=== PATIENT | female | born 1950 ===

== ENCOUNTER 2017-02-05 20:53 | Emergency (ER) | payer MEDICARE, MEDICAID ==
[~2017-02-05] VITALS: Ht 147.3 cm; Wt 77.3 kg
[~2017-02-05 20:53] MED LIST: BACTRIM DS 8001 TAB PO; CEPHALEXIN500 M1 PO; LIBRAX 5 MG-2.51 CA1 PO; LORTAB 5/500 501 TAB PO; NO HOME MEDICATIONS; SEPTRA DS 8001 TAB PO; bp med
[2017-02-05 20:56] VITALS: TEMP 99.4
[2017-02-06 00:19] VITALS: BP 141/81; PULSE 90
== END 2017-02-06 00:20 | disposition home or self-care (01) ==
LOC: COL.ER 20:53
DX: S09.90XA Unspecified injury of head, initial encounter (principal); S00.83XA Contusion of other part of head, initial encounter; W19.XXXA Unspecified fall, initial encounter; I10 Essential (primary) hypertension

== ENCOUNTER → 2018-11-22 | Outpatient (CLI) | payer MEDICARE, MEDICAID ==
[~2018-11-22] MED LIST changes: +HCTZ12.5TAB PO
[2018-11-22 16:48] LABS: BASO # 0.1 (0.0-0.2); BASO % 0.5 % (0.0-2.0); EOS # 0.5 (0.0-0.7); EOS % 3.5 % (0-4.0); GRAN # 8.7 (1.4-6.5); GRAN % 68.6 % (42.2-75.2); HEMATOCRIT 42.5 % (37.0-47.0); LYMPH # 2.8 (1.2-3.4); LYMPH % 22.4 % (20.0-51.0); MEAN CELL VOLUME 83 fl (80.0-100.0); MEAN CORPUSCULAR HEMOGLOBIN 27 pg (27.0-31.0); MEAN CORPUSCULAR HGB CONC 33 g/dl (33.0-37.0); MONO # 0.6 (0.1-0.6); MONO % 4.5 % (1.7-9.3); PLATELET COUNT 342 K/mm3 (130-400); RED BLOOD COUNT 5.15 M/mm3 (4.10-5.30); REDCELL DISTRIBUTION WIDTH-CV 13.2 % (11.5-14.5)
[2018-11-22 16:55] LABS: ALBUMIN 4.1 gm/dL (3.5-5.0); BILIRUBIN,TOTAL 0.6 mg/dL (0.0-1.0); CALCIUM 9.8 mg/dL (8.4-10.2); CHOLESTEROL RISK RATIO 5.2; CREATININE, serum 0.69 mg/dL (0.52-1.25); POTASSIUM 3.9 mmol/L (3.4-5.0); TOTAL PROTEIN 7.9 gm/dL (6.4-8.2)
[2018-11-22 17:25] LABS: TSH w REFLEX 0.783 uIU/mL (0.465-4.680)
== END ==
LOC: ZCOL.LAB 15:58
PROVIDERS: Family Medicine
DX: I10 Essential (primary) hypertension (principal); R41.3 Other amnesia; R32 Unspecified urinary incontinence

== ENCOUNTER → 2020-11-05 | Outpatient (CLI) | payer MEDICARE, MEDICAID | LOC: COL.RAD 09:37 | DX: Z01.818 Encounter for other preprocedural examination (principal); K43.9 Ventral hernia without obstruction or gangrene; Z90.710 Acquired absence of both cervix and uterus | CPT/HCPCS: Q9967 ==

== ENCOUNTER 2021-09-24 12:58 | Inpatient (IN) | payer MEDICARE, MEDICAID ==
[~2021-09-24] VITALS: Ht 149.9 cm; Wt 68.6 kg
[2021-09-24 13:45] LABS: HEMATOCRIT 47.8 % (37.0-47.0); HEMOGLOBIN 15.7 g/dl (12.5-16.0); MEAN CELL VOLUME 81 fl (80.0-100.0); MEAN CORPUSCULAR HEMOGLOBIN 27 pg (27-31); MEAN CORPUSCULAR HGB CONC 33 g/dl (33.0-37.0); MEAN PLATELET VOLUME 9.9 fl (7.4-10.4); PLATELET COUNT 540 K/mm3 (130-400); RED BLOOD COUNT 5.87 M/mm3 (4.10-5.30); REDCELL DISTRIBUTION WIDTH-CV 14.9 % (11.5-14.5)
[2021-09-24 14:03] LABS: ALBUMIN 4.8 gm/dL (3.4-4.8); BILIRUBIN,TOTAL 0.4 mg/dL (0.2-1.2); CALCIUM 9.4 mg/dL (8.4-10.2); CREATININE, serum 7.48 mg/dL (0.57-1.11); TOTAL PROTEIN 9.9 gm/dL (6.2-8.1)
[2021-09-24 14:08] LABS: TROPONIN-I 0.027 ng/mL (0.00-0.033)
[2021-09-24 14:49] LABS: COLLECTION METHOD CLEAN CATCH
[2021-09-24 14:51] LABS: BAND 5 % (0-10); LYMPHOCYTE 10 % (20.0-51.0); NEUTROPHILS 83 % (42.0-75.2); PLATELET ESTIMATE INCREASED (NORMAL)
[2021-09-24 15:15] LABS: MUCOUS Present (NOT PRESENT); PH 5 (5-8); SQUAMOUS EPITHELIAL 0-2 /hpf (0-10); URINE APPEARANCE Cloudy (CLEAR/HAZY); URINE BACTERIA Occasional /hpf (NONE SEEN); URINE BILIRUBIN Negative (NEGATIVE); URINE BLOOD Negative (NEGATIVE); URINE COLOR Amber (YELLOW); URINE GLUCOSE Negative (NEGATIVE); URINE KETONE Trace (NEGATIVE); URINE LEUKOCYTE ESTERASE 3+ (NEGATIVE); URINE NITRATE Negative (NEGATIVE); URINE PROTEIN(semi-quant) 2+ (NEGATIVE); URINE UROBILINOGEN Negative (NEGATIVE)
[2021-09-24] MEDS ORDERED: GLUCOTROL XL5 MG/TAB PO (18:11)
[2021-09-24] MEDS ORDERED: HCTZ 25MG TAB25 MG PO (18:13)
[2021-09-24] MEDS ORDERED: LIPITOR 40MG TA40 MG PO (18:13)
[2021-09-24] MEDS ORDERED: ZESTRIL40 MG PO (18:14)
--- NOTE | 2021-09-24 19:13 | NUR ---
PT ARRIVED TO FLOOR AROUND 1745. SETTLED INTO ROOM, ASSESSMENT COMPLETED, MED-RED UPDATED. LUNG SOUNDS DIMINISHED, IV FLUIDS STARTED PER ORDERS AND MEDS ADMINISTERED. [facility] WAS CONSULTED FOR ID. CALL LIGHT IN REACH, BED LOWERED AND BED ALARMS ON.
--- NOTE | 2021-09-24 20:20 | NUR ---
Patient is resting in bed, alert and oriented x 4, tachycardic. States she does not feel comfortable standing up, she feels weak. Pt had an incontinent episode, hygiene provided, linens and gown changed. Right now at RA and receiving fluids. Assessment completed, medications provided. No further needs at this time. Call light within reach.
[2021-09-25 00:13] VITALS: BP 120/58; PULSE 107; TEMP 98.2
[2021-09-25 04:49] VITALS: BP 113/45; PULSE 103; TEMP 97.9
--- NOTE | 2021-09-25 06:16 | NUR ---
Patient has not been able to rest along the night. She has had 3 incontinent episodes of diarrhea. Right now getting NS 75mL/hr. Patient still at RA. Report will be given to day RN.
[2021-09-25 06:59] LABS: BASO # 0.1 K/mm3 (0.0-0.2); BASO % 0.3 % (0.0-2.0); GRAN # 18.8 K/mm3 (1.4-6.5); GRAN % 85.4 % (42.2-75.2); LYMPH # 1.8 K/mm3 (1.2-3.4); LYMPH % 8.3 % (20.0-51.0); MEAN CELL VOLUME 79 fl (80.0-100.0); MEAN CORPUSCULAR HGB CONC 34 g/dl (33.0-37.0); MEAN PLATELET VOLUME 10.3 fl (7.4-10.4); MONO # 1.2 K/mm3 (0.1-0.6); MONO % 5.4 % (1.7-9.3); RED BLOOD COUNT 4.94 M/mm3 (4.10-5.30); REDCELL DISTRIBUTION WIDTH-CV 14.8 % (11.5-14.5)
[2021-09-25 07:14] LABS: MEAN CORPUSCULAR HEMOGLOBIN 27 pg (27-31)
[2021-09-25 07:15] LABS: ALBUMIN 3.7 gm/dL (3.4-4.8); CALCIUM 8.9 mg/dL (8.4-10.2); CREATININE, serum 6.96 mg/dL (0.57-1.11); MAGNESIUM 2.4 mg/dL (1.6-2.6); PHOSPHOROUS 8.2 mg/dL (2.3-4.7); POTASSIUM 4.1 mmol/L (3.5-4.5)
[2021-09-25 07:17] LABS: HEMOGLOBIN 13.2 g/dl (12.5-16.0); PLATELET COUNT 440 K/mm3 (130-400)
[2021-09-25 08:59] VITALS: BP 115/57; PULSE 87; TEMP 98.4
--- NOTE | 2021-09-25 10:17 | NUR ---
PT RESTING IN BED. REPOSITIONED PT IN BED TO FACILITATE EATING BREAKFAST. PT SEEN BY RAUL LÓPEZ FOR BEDROS. LUNGS COARSE ALL MANUEL.
--- NOTE | 2021-09-25 11:05 | NUR ---
PT HAD DIARRHEA BED CHANGE AND BED BATH GIVEN.
[2021-09-25 11:34] VITALS: BP 115/47; PULSE 91; TEMP 98.8
--- NOTE | 2021-09-25 13:19 | NUR ---
brick kiln worker was unable to contact patient in her room. Worker contacted patient's daughter's Vicky #[phone] and her sister to complete initial assessment and discuss discharge planning. Patient lives with daughter, Batsheva #[phone] and Batsheva is with patient most of the day. Batsheva currently has COVID and also speaks very little [place]. Vicky wishes to be the contact lens blocker and cutter for this reason. Patient does not have a durable power of tinner helper and worker provided information and offered to assist patient with completion of document if she/family desired. Daughters verbalized support in making the advance directives. Worker confirmed that patient has Medicare and [employer] and her primary care provider is Dr Johnson. Daughters state that patient has been independent with all of her activities of daily living and has been picking up her own prescriptions. Worker provided nurses station number and encouraged Vicky to call and leave a request for patient's nurse to call with updates. Worker advised that case management team will assist patient and family with securing a safe discharge plan.
--- NOTE | 2021-09-25 14:50 | NUR ---
PT HAS HAD SEVERAL INCONTINENT STOOLS AND VOIDS THIS SHIFT.
[2021-09-25 17:11] VITALS: BP 130/58; PULSE 95; TEMP 98.7
[2021-09-25 21:48] VITALS: BP 125/59; PULSE 102; TEMP 97.8
[2021-09-26 01:36] VITALS: BP 141/63; PULSE 98; TEMP 98.7
--- NOTE | 2021-09-26 05:21 | NUR ---
ASSESSMENT COMPLETE FOR THIS SHIFT. PT RESTING IN BED NAPPING WHEN I WALKED IN. PT DENIES PAIN, PALPITATIONS, SOB, OR DIZZINESS. PT HAS SEVERAL INCONTINENT BOWELS TONIGHT, AFTER WHICH SHE WOULD CALL OUT TO LET US KNOW SHE NEEDED TO BE CHANGED. PT ALSO CALLED HER DAUGHTER TO HAVE THE NURSE COME IN TO CHANGE HER, WHEN SHE COULDN'T FIND HER CALL LIGHT BECAUSE SHE HAD ROLLED ON TOP OF IT. PT EXPRESSED NO OTHER NEEDS AT THIS TIME. CALL LIGHT WITHIN REACH.
[2021-09-26 05:54] VITALS: BP 120/56; PULSE 91; TEMP 98.2
[2021-09-26 06:15] LABS: BASO # 0.1 K/mm3 (0.0-0.2); BASO % 0.4 % (0.0-2.0); EOS % 0.1 % (0.0-4.0); GRAN # 16.1 K/mm3 (1.4-6.5); GRAN % 84.2 % (42.2-75.2); HEMOGLOBIN 11.9 g/dl (12.5-16.0); LYMPH # 1.9 K/mm3 (1.2-3.4); LYMPH % 9.7 % (20.0-51.0); MEAN CELL VOLUME 81 fl (80.0-100.0); MEAN CORPUSCULAR HEMOGLOBIN 26 pg (27-31); MEAN CORPUSCULAR HGB CONC 33 g/dl (33.0-37.0); MEAN PLATELET VOLUME 10.5 fl (7.4-10.4); MONO # 0.9 K/mm3 (0.1-0.6); MONO % 4.8 % (1.7-9.3); PLATELET COUNT 342 K/mm3 (130-400); REDCELL DISTRIBUTION WIDTH-CV 15.2 % (11.5-14.5)
[2021-09-26 06:24] LABS: HEMATOCRIT 36.4 % (37.0-47.0)
[2021-09-26 06:31] LABS: ALBUMIN 3.2 gm/dL (3.4-4.8); CALCIUM 8.7 mg/dL (8.4-10.2); CREATININE, serum 6.5 mg/dL (0.57-1.11); MAGNESIUM 2.2 mg/dL (1.6-2.6); PHOSPHOROUS 7.8 mg/dL (2.3-4.7)
--- NOTE | 2021-09-26 08:00 | NUR ---
Shift assessment complete. Pt resting in bed, A&Ox4. Incontinent of loose brown stool. Pt cleaned up and changed. Heart RRR. Lungs CTA. Denies pain or SOA. Remains on RA. Fluids running at 100 ml/hr. Denies needs at this time. Call light in reach.
[2021-09-26 08:07] VITALS: BP 139/50; PULSE 90; TEMP 97.9
[2021-09-26 11:16] VITALS: BP 135/55; PULSE 86; TEMP 98.3
[2021-09-26 17:36] VITALS: BP 136/47; PULSE 87; TEMP 98.1
[2021-09-26 21:51] VITALS: BP 140/58; PULSE 87; TEMP 98.6
[2021-09-27 00:39] VITALS: BP 150/62; PULSE 82; TEMP 98.9
[2021-09-27 05:40] VITALS: BP 149/62; PULSE 83; TEMP 98.7
--- NOTE | 2021-09-27 06:19 | NUR ---
Pt on RA, no SOA reported, IVF infusing @100cc/hr, BGM 81 this am, x1 episode of emesis this shift, PRISCILA Ramos notified, zofran ordered and given, no further emesis. continues to have incontinence of loose stools and urine, notified PRISCILA Smith of this and need for BGMs and insulin orders per Dr Amezquita's note yesterday. GI panel, BGMs and insulin ordered, blood sugar this am 81.
[2021-09-27 07:33] LABS: HEMOGLOBIN 10.7 g/dl (12.5-16.0); MEAN CELL VOLUME 79 fl (80.0-100.0); MEAN CORPUSCULAR HEMOGLOBIN 26 pg (27-31); MEAN CORPUSCULAR HGB CONC 33 g/dl (33.0-37.0); MEAN PLATELET VOLUME 10.3 fl (7.4-10.4); PLATELET COUNT 287 K/mm3 (130-400); RED BLOOD COUNT 4.08 M/mm3 (4.10-5.30); REDCELL DISTRIBUTION WIDTH-CV 15.2 % (11.5-14.5)
[2021-09-27 07:35] LABS: HEMATOCRIT 32.3 % (37.0-47.0)
[2021-09-27 08:02] LABS: ALBUMIN 2.8 gm/dL (3.4-4.8); CALCIUM 8.7 mg/dL (8.4-10.2); CREATININE, serum 5.72 mg/dL (0.57-1.11); MAGNESIUM 1.9 mg/dL (1.6-2.6); PHOSPHOROUS 5.6 mg/dL (2.3-4.7); POTASSIUM 3.9 mmol/L (3.5-4.5)
[2021-09-27 08:10] VITALS: BP 149/59; PULSE 85; TEMP 97.5
[2021-09-27 08:55] LABS: BAND 1 % (0-10); LYMPHOCYTE 13 % (20.0-51.0); NEUTROPHILS 81 % (42.0-75.2); PLATELET ESTIMATE NORMAL (NORMAL)
--- NOTE | 2021-09-27 09:57 | NUR ---
PT RESTING IN BED, MORNING MEDICATIONS GIVEN. SHIFT ASSESSMENT COMPLETED. PT A&O TO QUESTIONS. DENIES ANY NEEDS. CURRENTLY ON ROOM AIR WITH IV FLUIDS INFUSING. WILL CONTINUE TO MONITOR.
[2021-09-27 11:43] VITALS: BP 154/56; PULSE 83; TEMP 98.9
--- NOTE | 2021-09-27 15:18 | NUR ---
Retail Marketing Specialist spoke with hospitalist about PT/OT orders and will continue to follow for any discharge recommendations.
[2021-09-27 16:00] VITALS: BP 172/60; PULSE 77; TEMP 99.2
[2021-09-27 20:09] VITALS: BP 157/57; PULSE 71; TEMP 98
[2021-09-28] VITALS (7 sets, daily range): BP systolic 146–192; BP diastolic 60–76; PULSE 71–87; TEMP 98.5–98.9
[2021-09-28 06:43] LABS: HEMOGLOBIN 10.6 g/dl (12.5-16.0); MEAN CELL VOLUME 80 fl (80.0-100.0); MEAN CORPUSCULAR HEMOGLOBIN 26 pg (27-31); MEAN CORPUSCULAR HGB CONC 33 g/dl (33.0-37.0); MEAN PLATELET VOLUME 10.2 fl (7.4-10.4); PLATELET COUNT 294 K/mm3 (130-400); RED BLOOD COUNT 4.03 M/mm3 (4.10-5.30); REDCELL DISTRIBUTION WIDTH-CV 14.8 % (11.5-14.5)
[2021-09-28 06:52] LABS: HEMATOCRIT 32.4 % (37.0-47.0)
[2021-09-28 07:04] LABS: ALBUMIN 2.9 gm/dL (3.4-4.8); CREATININE, serum 4.04 mg/dL (0.57-1.11); MAGNESIUM 1.8 mg/dL (1.6-2.6); POTASSIUM 3.7 mmol/L (3.5-4.5)
--- NOTE | 2021-09-28 07:05 | NUR ---
ASSESSMENT COMPLETE FOR THIS SHIFT. PT RESTING IN BED. PT DENIED PALPITATIONS, N,V,D, SOB OR DIZZINESS. PT COMPLAINED OF STOMACH PAIN. PT GIVEN NORCO FOR PAIN. PAIN RELIEVED PER PT. PT HAS MASS TO LEFT ABD. PT ALSO COMPLAINED OF ICHY FEET AND DRY MOUTH AND LIPS. I MASSAGED PT'S FEET AND ANKLES WITH LOTION, PLACED MOUTH MOISTURE ON PT'S LIPS AND GAVE PT SOME WATER. PT EXPRESSED NO OTHER NEEDS AT THIS TIME. CALL LIGHT WITHIN REACH
[2021-09-28 07:42] LABS: LYMPHOCYTE 16 % (20.0-51.0); NEUTROPHILS 79 % (42.0-75.2); PLATELET ESTIMATE NORMAL (NORMAL)
--- NOTE | 2021-09-28 10:11 | NUR ---
PT RESTING IN BED. MORNING MEDICATIONS GIVEN. SHIFT ASSESSMENT COMPLETED. PT IV INFILTRATED, NEW SITE STARTED AT R FOREARM, NS INFUSING AT 100ML/HR. DENIES ANY OTHER SORCE OF PAIN OR SOB. CURRENTLY NOT REQUIRING OXYGEN. WILL CONTINUE TO MONITOR.
[2021-09-29 03:40] VITALS: BP 167/73; PULSE 75; TEMP 98.5
[2021-09-29 07:02] LABS: ALBUMIN 2.8 gm/dL (3.4-4.8); CALCIUM 8.7 mg/dL (8.4-10.2); CREATININE, serum 2.17 mg/dL (0.57-1.11); MAGNESIUM 1.4 mg/dL (1.6-2.6); PHOSPHOROUS 2.9 mg/dL (2.3-4.7); POTASSIUM 3.6 mmol/L (3.5-4.5)
[2021-09-29 08:28] VITALS: BP 162/67; PULSE 77; TEMP 98.8
[2021-09-29 09:44] LABS: HEMATOCRIT 33.6 % (37.0-47.0); HEMOGLOBIN 11.3 g/dl (12.5-16.0); MEAN CELL VOLUME 79 fl (80.0-100.0); MEAN CORPUSCULAR HEMOGLOBIN 27 pg (27-31); MEAN CORPUSCULAR HGB CONC 34 g/dl (33.0-37.0); MEAN PLATELET VOLUME 10.8 fl (7.4-10.4); PLATELET COUNT 285 K/mm3 (130-400); RED BLOOD COUNT 4.25 M/mm3 (4.10-5.30); REDCELL DISTRIBUTION WIDTH-CV 14.9 % (11.5-14.5)
[2021-09-29 10:29] LABS: BAND 3 % (0-10); BURR CELLS 1+; LYMPHOCYTE 35 % (20.0-51.0); METAMYELOCYTE 1 % (0-0); NEUTROPHILS 55 % (42.0-75.2); PLATELET ESTIMATE NORMAL (NORMAL)
[2021-09-29 12:12] VITALS: BP 167/69; PULSE 79; TEMP 98.4
[2021-09-29 16:03] VITALS: BP 156/71; PULSE 81; TEMP 98.7
--- NOTE | 2021-09-29 18:00 | NUR ---
Patient has had an uneventful day. Fluids running as orderded. Patient currently on RA. Scheduled medications given. Shift assessment performed. VSS. Patient A&O.
[2021-09-29 21:43] VITALS: BP 152/69; PULSE 90; TEMP 98.8
[2021-09-30 00:32] VITALS: BP 148/65; PULSE 80; TEMP 98.8
[2021-09-30 04:41] VITALS: BP 145/65; PULSE 75; TEMP 99
[2021-09-30 06:35] LABS: HEMOGLOBIN 11.9 g/dl (12.5-16.0); MEAN CELL VOLUME 79 fl (80.0-100.0); MEAN CORPUSCULAR HEMOGLOBIN 27 pg (27-31); MEAN CORPUSCULAR HGB CONC 34 g/dl (33.0-37.0); MEAN PLATELET VOLUME 10.3 fl (7.4-10.4); PLATELET COUNT 302 K/mm3 (130-400); RED BLOOD COUNT 4.46 M/mm3 (4.10-5.30); REDCELL DISTRIBUTION WIDTH-CV 14.3 % (11.5-14.5)
[2021-09-30 06:46] LABS: HEMATOCRIT 35.2 % (37.0-47.0)
[2021-09-30 06:50] LABS: CALCIUM 8.8 mg/dL (8.4-10.2); CREATININE, serum 1.39 mg/dL (0.57-1.11); MAGNESIUM 1.6 mg/dL (1.6-2.6); PHOSPHOROUS 2.1 mg/dL (2.3-4.7); POTASSIUM 3.6 mmol/L (3.5-4.5)
[2021-09-30 08:32] VITALS: BP 145/60; PULSE 72; TEMP 98.9
[2021-09-30] MEDS ORDERED: NORVASC 10MG10 MG PO (11:51)
[2021-09-30] MEDS ORDERED: ZESTRIL 5MG5 MG PO (11:52)
--- NOTE | 2021-09-30 14:12 | NUR ---
Discharge instructions discussed with patient and her daughter, instructed to follow up with PCP and Nephrology as scheduled, discussed medication changes and new scripts sent to pharmacy for her, IV and tele removed, instructed to continue Quarintine /isolation for 10 days from onset of symptoms, patient is leaving with a daughter, TIRE STRIPPER escorted her out the door
== END 2021-09-30 14:14 | disposition home or self-care (01) | DRG 871 ==
LOC: COL.ER 12:58 → MEDICAL 16:06
PROVIDERS: Internal Medicine; Physician Assistant; ADMIT Internal Medicine
DX: A41.9 Sepsis, unspecified organism (principal); R65.21 Severe sepsis with septic shock; U07.1 COVID-19; J12.82 Pneumonia due to coronavirus disease 2019; N17.9 Acute kidney failure, unspecified; N39.0 Urinary tract infection, site not specified; E87.2 Acidosis; E87.0 Hyperosmolality and hypernatremia; E11.9 Type 2 diabetes mellitus without complications; E66.9 Obesity, unspecified; E78.5 Hyperlipidemia, unspecified; I10 Essential (primary) hypertension; E87.5 Hyperkalemia; D75.839 Thrombocytosis, unspecified; E83.42 Hypomagnesemia; B97.89 Other viral agents as the cause of diseases classified elsewhere; B96.20 Unspecified Escherichia coli [E. coli] as the cause of diseases classified elsewhere; Z68.30 Body mass index [BMI] 30.0-30.9, adult
CPT/HCPCS: 99223-AI; 99232-AI; 99233-AI; 99239; J0360; J0692; J0696; J1644; J1815; J2405; J3475; J7030

== ENCOUNTER 2021-11-22 20:37 | Emergency (ER) | payer MEDICARE, MEDICAID ==
[~2021-11-22] VITALS: Ht 160 cm; Wt 69.5 kg
[~2021-11-22 20:37] MED LIST changes: +GLUCOTROL XL5 MG/TAB PO; +HCTZ 25MG TAB25 MG PO; +LIPITOR 40MG TA40 MG PO; +NORVASC 10MG10 MG PO; +ZESTRIL 5MG5 MG PO; +ZESTRIL40 MG PO
[2021-11-22 21:08] VITALS: TEMP 98.1
[2021-11-22 23:06] VITALS: BP 134/77; PULSE 81
== END 2021-11-22 23:06 | disposition home or self-care (01) ==
LOC: COL.ER 20:37
DX: S80.01XA Contusion of right knee, initial encounter (principal); S09.90XA Unspecified injury of head, initial encounter; S69.91XA Unspecified injury of right wrist, hand and finger(s), initial encounter; S00.31XA Abrasion of nose, initial encounter; Z86.16 Personal history of COVID-19; W01.198A Fall on same level from slipping, tripping and stumbling with subsequent striking against other object, initial encounter; Y93.01 Activity, walking, marching and hiking

== ENCOUNTER 2022-02-19 12:14 | Emergency (ER) | payer MEDICARE, MEDICAID ==
[~2022-02-19] VITALS: Ht 149.9 cm; Wt 69.5 kg
[2022-02-19 12:34] VITALS: TEMP 98.3
[2022-02-19 13:20] VITALS: BP 107/69; PULSE 99
== END 2022-02-19 13:20 | disposition home or self-care (01) ==
LOC: COL.ER 12:14
DX: T24.212A Burn of second degree of left thigh, initial encounter (principal); X11.8XXA Contact with other hot tap-water, initial encounter